=== PATIENT | female | born 1995 | race Native Hawaiian/Other Pacific Islander ===

== ENCOUNTER 2018-02-26 18:00 | Outpatient (CLI) | payer OTHER ==
[2018-02-26 18:55] LABS: Appearance,Urine Clear (Clear); Bacteria,Urine Few /hpf; Bilirubin,Urine Negative (Negative); Blood,Urine Negative (Negative); Color,Urine Light Yellow; Glucose,Urine (UA) Negative (Negative); Ketones,Urine Negative (Negative); Leukocyte Esterase,Urine Small (Negative); Mucus,Urine Rare /hpf; Nitrite,Urine Negative (Negative); Protein,Urine Negative (Negative); RBC,Urine 1 /hpf (0-5); Specific Gravity,Urine 1.007 (1.001-1.035); Squamous Epithelial Cell,Urine 2 /hpf (0-4); Urobilinogen,Urine <2.0 mg/dL (<2.0); WBC,Urine 2 /hpf (0-5)
[2018-02-26 18:59] VITALS: BP 124/77; PULSE 92; RESP 17; TEMP 98.4
--- NOTE | 2018-03-08 12:40 | P.MSEPDOC ---
Presenting Problems - Arrival Data Date of Arrival on Unit: 02/26/18 Time of Arrival on Unit: 18:00 Mode of Transport: Ambulatory - Complaint OB-Reason for Admission/Chief Complaint: Decreased Movement, Other Comment: pt reports vaginal pressure and left lower abd pain for last day that increases with movement, pt also reports decreased movement today, pt has a history of issues with emesis with , pt reports difficulty eating last two days without feeling nauseated and experiencing emesis Medical History - Information : 1 Para: 0 Term: 0 : 0 Abortions: Spontaneous or Elective: 0 Number of Living Children: 0 - Gestational Age Gestational Age by MATHEW (wks/days): 30 Weeks and 6 Days - History Comment: pt was seeing Dr Ocampo at [facility], moved here to this area 2 months ago and has not made it back to see him since Review of Systems - Review of Systems Constitutional: No problems Breast: No problems ENT: No problems Cardiovascular: No problems Respiratory: No problems Gastrointestinal: No problems Genitourinary: No problems Musculoskeletal: No problems Neurological: No problems Skin: No problems Vital Signs - Temperature Temperature: 98.4 F Temperature Source: Oral - Pulse Right Brachial Pulse Rate: 92 Pulse Assessment Method: Automatic Cuff - Respirations Respiratory Rate: 17 Oxygen Delivery Method: Room Air O2 Sat by Pulse Oximetry: 97 - Blood Pressure Right Arm Blood Pressure: 124/77 Blood Pressure Mean: 92 Blood Pressure Source: Automatic Cuff Medical Screen Scoring (Pre) - Cervical Exam Dilation: 0 cm = 0 Effacement: Exam Deferred Membranes: Intact - Uterine Contractions Frequency: N/A Duration: N/A Intensity: N/A - Maternal Vital Signs Maternal Temperature: N/A Maternal Blood Pressure: N/A Signs of Preeclampsia: N/A Maternal Respirations: N/A - Pain Assessment Pain Location and Character: Pelvic Pain Scale Used: Numeric (1 - 10) Pain Intensity: 5 Pain Management Goal: 3 Pain Description: *Acute, Sharp Pain Radiation Location: none Pain Frequency: Intermittent Pain Duration: 1 Pain Duration Units: Days Pain Behavior: None Exhibited Pain Aggravating Factors: Activity - Maternal Trauma Maternal Trauma: N/A - Assessment Baseline FHR: 145 Heart Rate - NICHD Category: Category I (Normal) = 0 NST: Reactive Position: N/A Station: N/A - Total Score Total Score (Pre): 0 - Level of Risk Level of Risk: Low (0-5) Physician Notification (Pre) - Physician Notified Physician Notified Date: 02/26/18 Physician Notified Time: 18:30 Physician/Practitioner Notifed:: Dr Benitez Spoke With: Dr Emmanuel Meraz Order Received: Yes (send ua) Medical Screen Scoring (Post) - Maternal Trauma Maternal Trauma: N/A - Assessment Heart Rate: 135 Heart Rate - NICHD Category: Category I (Normal) = 0 NST: Reactive Position: N/A - Total Score Total Score (Post): 0 - Post Treatment Level of Risk Post Treatment Level of Risk: N/A Physician Notification (Post) - Physician Notified Physician Notified Date: 02/26/18 Physician Notified Time: 19:30 Physician/Practitioner Notified:: Dr. Benitez Spoke With: Dr. Emmanuel Meraz Order Received: Yes - Notification Comment Comment: d/c home Disposition - Disposition OB Disposition: Discharge to home Discharge Date: 02/26/18 Discharge Time: 19:30 I agree with the RN Medical Screening Exam: Yes Risk & Benefit of care provided described in d/c instruction: Yes Diagnosis: DECREASED MOVEMENTS, THIRD TRIMESTER, UNSP
== END 2018-02-26 19:30 | disposition home or self-care (01) ==
LOC: FBPOP 18:00
PROVIDERS: ATTEND Obstetrics & Gynecology
DX: O36.8130 Decreased fetal movements, third trimester, not applicable or unspecified (principal); Z3A.30 30 weeks gestation of pregnancy
CPT/HCPCS: 59025; 81001; G0463; 99213

== ENCOUNTER 2018-04-03 23:34 | Outpatient (CLI) | payer OTHER ==
[2018-04-04 01:01] LABS: Appearance,Urine Clear (Clear); Bacteria,Urine Rare /hpf; Bilirubin,Urine Negative (Negative); Blood,Urine Negative (Negative); Color,Urine Yellow; Glucose,Urine (UA) Negative (Negative); Ketones,Urine Negative (Negative); Leukocyte Esterase,Urine Small (Negative); Mucus,Urine Rare /hpf; Nitrite,Urine Negative (Negative); PH, Urine 6.5 (5.0-8.0); Protein,Urine Negative (Negative); RBC,Urine <1 /hpf (0-5); Specific Gravity,Urine 1.011 (1.001-1.035); Squamous Epithelial Cell,Urine 1 /hpf (0-4); Urobilinogen,Urine <2.0 mg/dL (<2.0); WBC,Urine 2 /hpf (0-5)
[2018-04-04 01:22] VITALS: BP 131/81; PULSE 76; RESP 16; TEMP 99.7
--- NOTE | 2018-04-04 07:43 | P.MSEPDOC ---
Presenting Problems - Arrival Data Date of Arrival on Unit: 04/03/18 Time of Arrival on Unit: 23:30 Mode of Transport: Wheelchair - Complaint OB-Reason for Admission/Chief Complaint: Rule Out SROM Comment: pt had a small gush of fluid after 10pm Medical History - Information : 1 Para: 0 Term: 0 : 0 Abortions: Spontaneous or Elective: 0 Number of Living Children: 0 - Gestational Age Gestational Age by MATHEW (wks/days): 36 Weeks and 1 Days Review of Systems - Review of Systems Constitutional: No problems Breast: No problems ENT: No problems Cardiovascular: No problems Respiratory: No problems Gastrointestinal: Diarrhea Genitourinary: Increased frequency Musculoskeletal: No problems Neurological: No problems Skin: No problems Comment: pt has been vomiting the entire Vital Signs - Temperature Temperature: 99.7 F Temperature Source: Oral - Pulse Right Sitting Brachial Pulse Rate: 76 Pulse Assessment Method: Automatic Cuff - Respirations Respiratory Rate: 16 Oxygen Delivery Method: Room Air - Blood Pressure Right Arm Sitting Blood Pressure: 131/81 Blood Pressure Mean: 97 Blood Pressure Source: Automatic Cuff Medical Screen Scoring (Pre) - Cervical Exam Dilation: 0 cm = 0 Membranes: Intact - Uterine Contractions Frequency: N/A Duration: N/A Intensity: N/A - Maternal Vital Signs Maternal Temperature: N/A Maternal Blood Pressure: N/A Signs of Preeclampsia: N/A Maternal Respirations: N/A - Pain Assessment Pain Location and Character: Left, Groin Pain Scale Used: Numeric (1 - 10) Pain Intensity: 8 Pain Management Goal: 2 Pain Description: Aching Pain Frequency: Occasional Pain Behavior: None Exhibited Pain Aggravating Factors: Walking - Maternal Trauma Maternal Trauma: N/A - Assessment Baseline FHR: 135 Heart Rate - NICHD Category: Category I (Normal) = 0 NST: Reactive - Total Score Total Score (Pre): 0 - Level of Risk Level of Risk: Low (0-5) Physician Notification (Pre) - Physician Notified Physician Notified Date: 04/04/18 Physician Notified Time: 00:07 Spoke With: Dr Mickey Meraz Order Received: Yes - Notification Comment Comment: Discharge Home Disposition - Disposition OB Disposition: Discharge to home, Written follow up instructions reviewed Discharge Date: 04/04/18 Discharge Time: 01:15 I agree with the RN Medical Screening Exam: Yes Risk & Benefit of care provided described in d/c instruction: Yes Diagnosis: FALSE LABOR BEFORE 37 COMPLETED WEEKS OF GEST, THIRD TRI
== END 2018-04-04 01:15 | disposition home or self-care (01) ==
LOC: FBPOP 23:34
PROVIDERS: ATTEND Obstetrics & Gynecology
DX: O47.03 False labor before 37 completed weeks of gestation, third trimester (principal); Z3A.36 36 weeks gestation of pregnancy
CPT/HCPCS: 59025; 84112; 81001; G0463; 99213

== ENCOUNTER 2020-11-18 14:44 | Emergency (ER) | payer OTHER ==
[2020-11-18 15:49] VITALS: BP 119/79; PULSE 89; RESP 18; TEMP 97.8
--- NOTE | 2020-11-18 17:04 | XR ---
EXAMINATION TYPE: XR chest 2V DATE OF EXAM: 11/18/2020 COMPARISON: NONE HISTORY: Cough TECHNIQUE: 2 views FINDINGS: Heart and mediastinum are normal. Lungs are clear. Diaphragm is normal. Bony thorax appears normal. IMPRESSION: Normal chest
--- NOTE | 2020-11-18 18:12 | ED ---
URI HPI - General Chief Complaint: Upper Respiratory Infection Stated Complaint: SOB,Cough,Chest pain Time Seen by Provider: 11/18/20 17:44 Source: patient, RN notes reviewed Mode of arrival: ambulatory Limitations: no limitations - History of Present Illness Initial Comments: Patient is a 25-year-old female that presents to emergency department russ cho of upper respiratory tract infection symptoms. She notes that she's had a cough that has been dry sinus congestion. She'll that she wanted to come emergency room just to get tested for Covid. She was in no apparent distress or pain while sitting up in bed during the exam interview. She noted that her coughing fits negative feel like her chest is getting kicked by a horse understands that coughing is a violent act. She denied any chest pain shortness of breath headache nausea vomiting diarrhea constipation fever fatigue chills. - Related Data Home Medications Medication Instructions Recorded Confirmed No Known Home Medications 02/26/18 04/03/18 Allergies Allergy/AdvReac Type Severity Reaction Status Date / Time amoxicillin Allergy Unknown Verified 11/18/20 15:46 Childhood Review of Systems ROS Statement: Those systems with pertinent positive or pertinent negative responses have been documented in the HPI. ROS Other: All systems not noted in ROS Statement are negative. Past Medical History Past Medical History: No Reported History History of Any Multi-Drug Resistant Organisms: None Reported Past Surgical History: No Surgical Hx Reported Past Psychological History: No Psychological Hx Reported Smoking Status: Never smoker Past Alcohol Use History: None Reported Past Drug Use History: Marijuana General Exam Limitations: no limitations General appearance: alert, in no apparent distress, obese Head exam: Present: atraumatic, normocephalic, normal inspection Eye exam: Present: normal appearance, PERRL, EOMI. Absent: scleral icterus, conjunctival injection, periorbital swelling Neck exam: Present: normal inspection. Absent: tenderness, meningismus, lymphadenopathy Respiratory exam: Present: normal lung sounds bilaterally. Absent: respiratory distress, wheezes, rales, rhonchi, stridor Cardiovascular Exam: Present: regular rate, normal rhythm, normal heart sounds. Absent: systolic murmur, diastolic murmur, rubs, gallop, clicks GI/Abdominal exam: Present: soft, normal bowel sounds. Absent: distended, tenderness, guarding, rebound, rigid Extremities exam: Present: normal inspection, full ROM, normal capillary refill. Absent: tenderness, pedal edema, joint swelling, calf tenderness Neurological exam: Present: alert, oriented X3, CN II-XII intact Psychiatric exam: Present: normal affect, normal mood Skin exam: Present: warm, dry, intact, normal color. Absent: rash Course Vital Signs 11/18/20 15:47 Temperature 97.8 F Pulse Rate 89 Respiratory 18 Rate Blood Pressure 119/79 O2 Sat by Pulse 98 Oximetry Medical Decision Making - Medical Decision Making 25 female complaining of upper respiratory tract infection symptoms for the past several days. Covid test, chest x-ray ordered. Covid test negative. Chest x-ray negative for any acute cardiopulmonary process. Case discussed with Dr. Woodward, patient to discharge home with symptomatic management. - Lab Data Lab Results 11/18/20 Range/Units 15:50 Coronavirus (PCR) Not Detected (Not Detectd) Disposition Clinical Impression: Upper respiratory tract infection Disposition: HOME SELF-CARE Condition: Stable Instructions (If sedation given, give patient instructions): Upper Respiratory Infection (ED) Additional Instructions: Please return to the Emergency Department if symptoms worsen or any other concerns. Follow-up with primary care in 3-5 days. Can take [id number] anti-inflammatories for fever and pain control. Can use [id number] cough medicine and nasal sprays to help with congestion and cough. Is patient prescribed a controlled substance at d/c from ED?: No Referrals: Yanet Dixon MD [Primary Care Provider] - 1-2 days Time of Disposition: 18:12
== END 2020-11-18 18:18 | disposition home or self-care (01) ==
LOC: EC 14:44
DX: J06.9 Acute upper respiratory infection, unspecified (principal); Z20.822 Contact with and (suspected) exposure to COVID-19; F12.90 Cannabis use, unspecified, uncomplicated
CPT/HCPCS: 71046; 87635; 99285

== ENCOUNTER 2021-11-08 18:29 | Outpatient (CLI) | payer OTHER ==
[2021-11-08 19:32] VITALS: BP 131/63; PULSE 97; RESP 18; TEMP 97
--- NOTE | 2021-11-08 20:02 | P.MSEPDOC ---
Presenting Problems - Arrival Data Date of Arrival on Unit: 11/08/21 Time of Arrival on Unit: 18:29 Mode of Transport: Ambulatory - Complaint OB-Reason for Admission/Chief Complaint: Vaginal Bleeding Comment: pt arrives with reports of vaginal bleeding with bright red blood in toilet and blood clots when she wiped 30 minutes ago. Medical History - Information : 2 Para: 1 Term: 0 : 1 Abortions: Spontaneous or Elective: 0 Number of Living Children: 1 - Gestational Age Gestational Age by MATHEW (wks/days): 31 Weeks and 3 Days - History Complications: Prior , Other Comment: pt states she takes progesterone for short cervix. pt states 2 weeks ago she was dilated to fingertip and 50%. Review of Systems - Review of Systems Constitutional: No problems Breast: No problems ENT: No problems Cardiovascular: No problems Respiratory: No problems Gastrointestinal: No problems Genitourinary: No problems Musculoskeletal: No problems Neurological: No problems Skin: No problems Vital Signs - Temperature Temperature: 97.0 F Temperature Source: Temporal Artery Scan - Pulse Right Pulse Oximetery Pulse Rate: 97 Pulse Assessment Method: Pulse Oximetry - Respirations Respiratory Rate: 18 Oxygen Delivery Method: Room Air O2 Sat by Pulse Oximetry: 96 - Blood Pressure Right Arm Blood Pressure: 131/63 Blood Pressure Mean: 85 Blood Pressure Source: Automatic Cuff Medical Screen Scoring - Cervical Exam Dilation (cm): 1 Effacement (%): 50 Station: -3 Membranes: Intact - Uterine Contractions Frequency From (mins): 0 Frequency To (mins): 0 - Assessment - Baby A Baseline FHR: 140 Heart Rate - NICHD Category: Category I (Normal) NST: Reactive Physician Notification - Physician Notified Physician Notified Date: 11/08/21 Physician Notified Time: 18:58 Physician: Germán Armenta New Order Received: Yes - Notification Comment Comment: given report on pt of [facility] [place], , hx 36 week vaginal delivery, arriving with complaints of vaginal bleeding, blood in toilet and some small clots when wiping prior to arrival. reported on hx of short cervix, pt on vaginal progesterone. reported FHR category 1, reactive NST, no contractions per monitor, cervical exam completed after Drs orders, same cervical exam as when she was in office 2 weeks ago, only old blood on glove after checking patient, no glove noted on pts trini pad. Order to discharge patient with instructions to follow up tonight by calling her lan specialist for instructions for when to be seen in office for follow up. Maternal Triage Index - Maternal Triage Index Presenting for scheduled procedure w/no complaint: Yes - Stat/Priority 1 Stat Priority 1: Yes - Urgent/Priority 2 Urgent Priority 2: Yes Provider Notified: Germán Armenta Provider Notified Time: 18:58 Criteria Met for Priority 2: Pt arrives with complaints of vaginal bleeding 31 3/7 weeks gestation. Disposition - Disposition OB Disposition: Discharge to home Discharge Date: 11/08/21 Discharge Time: 19:15 I agree with the RN Medical Screening Exam: Yes Case reviewed; plan agreed upon as documented in EMR&OBIX.: Yes Diagnosis: FALSE LABOR BEFORE 37 COMPLETED WEEKS OF GEST, THIRD TRI (Pt presents with complaint of episode vaginal spotting. Has with another local provider but came here for unknown reasons. Apparently complicated by ?history short cervix and is on progesterone per that provider. Exam per RN shows only some small amount old blood. No active bleeding. Cervix unchanged from her provider 2 weeks ago. FHTs are reassuring without decelerations. Patient was advised to call her provider this evening for further instructions since they are most familiar with her clinical condition. Also advised in the future it would be best to present at the facility where her provider practices to provide optimal care. There is no evidence of maternal / compromise and patient stable to f/u with her provider this evening. )
== END 2021-11-08 19:15 | disposition home or self-care (01) ==
LOC: FBPOP 18:29
PROVIDERS: ATTEND Obstetrics & Gynecology
DX: O47.03 False labor before 37 completed weeks of gestation, third trimester (principal); Z3A.31 31 weeks gestation of pregnancy
CPT/HCPCS: 59025; G0463; 99213

== ENCOUNTER 2023-11-24 14:18 | Emergency (ER) | payer OTHER ==
[2023-11-24 14:52] VITALS: TEMP 99.1
--- NOTE | 2023-11-24 15:40 | ED ---
General Adult HPI - General Chief complaint: Abdominal Pain Stated complaint: vomiting and abd pain Time Seen by Provider: 11/24/23 15:06 Source: patient Mode of arrival: ambulatory Limitations: no limitations - History of Present Illness Initial comments: Dictation was produced using [email or web address] dictation software. please excuse any grammatical, word or spelling errors. Chief Complaint: 28-year-old female presents with right-sided abdominal pain and flank pain History of Present Illness: Patient 28-year-old female presents emergency department with right-sided abdominal pain. States that the pain radiates to her right back. Denies any history of kidney stones. She had her last menstrual period 2 weeks ago. She does complain of associated nausea vomiting. No diarrhea. She has been having hot flashes. Patient took a test which she states was negative. She complains of a fever. Denies any history of abdominal surgery. The ROS documented in this emergency department record has been reviewed and confirmed by me. Those systems with pertinent positive or negative responses have been documented in the HPI. All other systems are other negative and/or noncontributory. - Related Data Home Medications Medication Instructions Recorded Confirmed Vit No.180/Iron/Folic 1 tab PO DAILY 11/08/21 11/08/21 [ Plus Tablet] Progesterone, Micronized 1 capsule VAGINAL DAILY 11/08/21 11/08/21 [Progesterone] Allergies Allergy/AdvReac Type Severity Reaction Status Date / Time amoxicillin Allergy Unknown Verified 11/24/23 14:43 Childhood Review of Systems ROS Statement: Those systems with pertinent positive or pertinent negative responses have been documented in the HPI. ROS Other: All systems not noted in ROS Statement are negative. Past Medical History Past Medical History: No Reported History History of Any Multi-Drug Resistant Organisms: None Reported Past Surgical History: No Surgical Hx Reported Past Psychological History: No Psychological Hx Reported, Anxiety, Depression Smoking Status: Never smoker Past Alcohol Use History: Occasional Past Drug Use History: Marijuana General Exam - General Exam Comments Initial Comments: PHYSICAL EXAM: General Impression: Alert and oriented x3, not in acute distress HEENT: Normocephalic atraumatic, extra-ocular movements intact, pupils equal and reactive to light bilaterally, mucous membranes moist. Cardiovascular: Heart regular rate and rhythm Chest: Able to complete full sentences, no retractions, no tachypnea Abdomen: abdomen soft, n mild tenderness to the right upper quadrant, positive Ruby sign, non-distended, no organomegaly Musculoskeletal: Pulses present and equal in all extremities, no peripheral edema Motor: no focal deficits noted Neurological: CN II-XII grossly intact, no focal motor or sensory deficits noted Skin: Intact with no visualized rashes Psych: Normal affect and mood Limitations: no limitations Course Vital Signs 11/24/23 14:39 Temperature 99.1 F Pulse Rate 114 H Respiratory 20 Rate Blood Pressure 134/86 O2 Sat by Pulse 99 Oximetry Medical Decision Making - Medical Decision Making Was pt. sent in by a medical professional or institution (, PA, [place] INTERN, urgent care, hospital, or snf...) When possible be specific @ -No Did you speak to anyone other than the patient for history (EMS, parent, family, police, friend...)? What history was obtained from this source @ -No Did you review nursing and triage notes (agree or disagree)? Why? @ -I reviewed and agree with nursing and triage notes Were old charts reviewed (outside hosp., previous admission, EMS record, old EKG, old radiological studies, urgent care reports/EKG's, snf records)? Report findings @ -No old charts were reviewed Differential Diagnosis (chest pain, altered mental status, abdominal pain women, abdominal pain men, vaginal bleeding, musculoskeletal, weakness, fever, dyspnea, syncope, headache, dizziness, GI bleed, back pain, seizure, CVA, palpatations, mental health)? @ -Differential Abdominal Pain Women: Appendicitis, Cholecystitis, diverticulosis, ischemic bowel, pancreatitis, hepatitis, UTI, gastroenteritis, AAA, incarcerated hernia, bowel obstruction, constipation, inflammatory bowel, hepatitis, peptic ulcer disease, splenic infarction, perforated viscus, vulvitis, ovarian torsion, PID, kidney stone, placenta abruption, this is not meant to be an all-inclusive list EKG interpreted by me (3pts min.). @ -None done X-rays interpreted by me (1pt min.). @ -None done CT interpreted by me (1pt min.). @ -None done U/S interpreted by me (1pt. min.). @ -Ultrasound of the abdomen shows hepatic steatosis. No cholelithiasis or acute cholecystitis What testing was considered but not performed or refused? (CT, X-rays, U/S, labs)? Why? @ -None What meds were considered but not given or refused? Why? @ -None Did you discuss the management of the patient with other professionals (professionals i.e. , PA, PR INTERN, lab, RT, psych nurse, psychosocial rehabilitation counselor, thermostat repairer, teacher, radio officer, case assistant)? Give summary @ -No Was smoking cessation discussed for >3mins.? @ -No Was critical care preformed (if so, how long)? @ -No Were there social determinants of health that impacted care today? How? (Homelessness, low income, unemployed, alcoholism, drug addiction, transportation, low edu. Level, literacy, decrease access to med. care, [facility], rehab)? @ -No Was there de-escalation of care discussed even if they declined (Discuss DNR or withdrawal of care, Hospice)? DNR status @ -No What co-morbidities impacted this encounter? (DM, HTN, Smoking, COPD, CAD, Cancer, CVA, ARF, Chemo, Hep., AIDS, mental health diagnosis, sleep apnea, m orbid obesity)? @ -None Was patient admitted / discharged? Hospital course, mention meds given and route, prescriptions, significant lab abnormalities, going to OR and other pertinent info. @ -28-year-old female presents emergency department for right upper quadrant abdominal pain radiation to the back. Vital signs upon arrival are within acceptable limits. Laboratory evaluation obtained. Mild leukocytosis of 13.8. Hemoglobin is 16.1. Metabolic panel is within acceptable limits. No acidosis. Urinalysis negative for UTI. Urine hCG is negative. Ultrasound negative for any acute processes. At this point is unclear what is causing patient's symptoms likely could be related to fatty liver. Patient otherwise in stable medical edition she will be discharged. Patient starter pack for analgesics. Advised follow-up with primary care doctor. Undiagnosed new problem with uncertain prognosis? @ -No Drug Therapy requiring intensive monitoring for toxicity (Heparin, Nitro, Insulin, Cardizem)? @ -No Were any procedures done? @ -No Diagnosis/symptom? Acute, or Chronic, or Acute on Chronic? Uncomplicated (without systemic symptoms) or Complicated (systemic symptoms)? @ -Abdominal pain, no high risk features Side effects of treatment? @ -No Exacerbation, Progression, or Severe Exacerbation? @ -No Poses a threat to life or bodily function? How? (Chest pain, [place], [place], pneumonia, PE, COPD, DKA, ARF, appy, cholecystitis, CVA, Diverticulitis, Homicidal, Suicidal, threat to staff... and all critical care pts) @ -No - Lab Data Result diagrams: 11/24/23 15:47 11/24/23 15:47 Lab Results 11/24/23 11/24/23 11/24/23 Range/Units 15:47 15:47 16:08 WBC 13.8 H (3.8-10.6) k/uL RBC 5.58 H (3.80-5.40) m/uL Hgb 16.1 H (11.4-16.0) gm/dL Hct 49.8 H (34.0-46.0) % MCV 89.2 (80.0-100.0) fL MCH 28.8 (25.0-35.0) pg MCHC 32.3 (31.0-37.0) g/dL RDW 13.4 (11.5-15.5) % Plt Count 305 (150-450) k/uL MPV 8.2 Neutrophils % 86 % Lymphocytes % 8 % Monocytes % 4 % Eosinophils % 1 % Basophils % 0 % Neutrophils # 11.8 H (1.3-7.7) k/uL Lymphocytes # 1.2 (1.0-4.8) k/uL Monocytes # 0.6 (0-1.0) k/uL Eosinophils # 0.1 (0-0.7) k/uL Basophils # 0.0 (0-0.2) k/uL Sodium 139 (137-145) mmol/L Potassium 4.9 (3.5-5.1) mmol/L Chloride 106 (98-107) mmol/L Carbon Dioxide 21 L (22-30) mmol/L Anion Gap 12 mmol/L BUN 12 (7-17) mg/dL Creatinine 0.66 (0.52-1.04) mg/dL Est GFR (CKD-EPI)AfAm >90 (>60 ml/min/1.73 sqM) Est GFR (CKD-EPI)NonAf >90 (>60 ml/min/1.73 sqM) Glucose 84 (74-99) mg/dL Calcium 9.6 (8.4-10.2) mg/dL Total Bilirubin 1.1 (0.2-1.3) mg/dL AST 59 H (14-36) U/L ALT 82 H (4-34) U/L Alkaline Phosphatase 86 (38-126) U/L Total Protein 9.1 H (6.3-8.2) g/dL Albumin 5.2 H (3.5-5.0) g/dL Urine Color Urine Appearance (Clear) Urine pH (5.0-8.0) Ur Specific [place] (1.001-1.035) Urine Protein (Negative) Urine Glucose (UA) (Negative) Urine Ketones (Negative) Urine Blood (Negative) Urine Nitrite (Negative) Urine Bilirubin (Negative) Urine Urobilinogen (<2.0) mg/dL Ur Leukocyte Esterase (Negative) Urine RBC (0-5) /hpf Urine WBC (0-5) /hpf Ur Squamous Epith Cells (0-4) /hpf Urine Mucus (None) /hpf Urine HCG, Qual Not Detected (Not Detectd) 11/24/23 Range/Units 16:08 WBC (3.8-10.6) k/uL RBC (3.80-5.40) m/uL Hgb (11.4-16.0) gm/dL Hct (34.0-46.0) % MCV (80.0-100.0) fL MCH (25.0-35.0) pg MCHC (31.0-37.0) g/dL RDW (11.5-15.5) % Plt Count (150-450) k/uL MPV Neutrophils % % Lymphocytes % % Monocytes % % Eosinophils % % Basophils % % Neutrophils # (1.3-7.7) k/uL Lymphocytes # (1.0-4.8) k/uL Monocytes # (0-1.0) k/uL Eosinophils # (0-0.7) k/uL Basophils # (0-0.2) k/uL Sodium (137-145) mmol/L Potassium (3.5-5.1) mmol/L Chloride (98-107) mmol/L Carbon Dioxide (22-30) mmol/L Anion Gap mmol/L BUN (7-17) mg/dL Creatinine (0.52-1.04) mg/dL Est GFR (CKD-EPI)AfAm (>60 ml/min/1.73 sqM) Est GFR (CKD-EPI)NonAf (>60 ml/min/1.73 sqM) Glucose (74-99) mg/dL Calcium (8.4-10.2) mg/dL Total Bilirubin (0.2-1.3) mg/dL AST (14-36) U/L ALT (4-34) U/L Alkaline Phosphatase (38-126) U/L Total Protein (6.3-8.2) g/dL Albumin (3.5-5.0) g/dL Urine Color Light Yellow Urine Appearance Clear (Clear) Urine pH 8.0 (5.0-8.0) Ur Specific [place] 1.021 (1.001-1.035) Urine Protein Trace H (Negative) Urine Glucose (UA) Negative (Negative) Urine Ketones Negative (Negative) Urine Blood Trace H (Negative) Urine Nitrite Negative (Negative) Urine Bilirubin Negative (Negative) Urine Urobilinogen <2.0 (<2.0) mg/dL Ur Leukocyte Esterase Negative (Negative) Urine RBC 6 H (0-5) /hpf Urine WBC 1 (0-5) /hpf Ur Squamous Epith Cells 2 (0-4) /hpf Urine Mucus Rare H (None) /hpf Urine HCG, Qual (Not Detectd) Disposition Clinical Impression: Abdominal pain Disposition: HOME SELF-CARE Condition: Fair Instructions (If sedation given, give patient instructions): Non-Alcoholic Fatty Liver Disease (ED) Is patient prescribed a controlled substance at d/c from ED?: No Referrals: Yanet Dixon MD [Primary Care Provider] - 1-2 days Time of Disposition: 17:26
[2023-11-24] MEDS: ONDANSETRON 4 MG/2 ML VIAL IVP STA (15:51)
[2023-11-24] MEDS: SODIUM CHLORIDE 0.9% 1,000 ML IV STA (15:51)
[2023-11-24] MEDS: LORazepam 2 MG/ML INJ IV STA (15:52)
[2023-11-24 16:16] LABS: Basophils % (A) 0 %; Eosinophils # (A) 0.1 k/uL (0-0.7); Eosinophils % (A) 1 %; HCT 49.8 % (34.0-46.0); HGB 16.1 gm/dL (11.4-16.0); Lymphocytes # (A) 1.2 k/uL (1.0-4.8); Lymphocytes % (A) 8 %; MCH 28.8 pg (25.0-35.0); MCHC 32.3 g/dL (31.0-37.0); MCV 89.2 fL (80.0-100.0); Mean Platelet Volume 8.2; Monocytes # (A) 0.6 k/uL (0-1.0); Monocytes % (A) 4 %; Neutrophils # (A) 11.8 k/uL (1.3-7.7); Neutrophils % (A) 86 %; Platelet Count 305 k/uL (150-450); RBC 5.58 m/uL (3.80-5.40); RDW 13.4 % (11.5-15.5); WBC 13.8 k/uL (3.8-10.6)
[2023-11-24 16:28] LABS: Appearance,Urine Clear (Clear); Bilirubin,Urine Negative (Negative); Blood,Urine Trace (Negative); Color,Urine Light Yellow; Glucose,Urine (UA) Negative (Negative); Ketones,Urine Negative (Negative); Leukocyte Esterase,Urine Negative (Negative); Mucus,Urine Rare /hpf; Nitrite,Urine Negative (Negative); Protein,Urine Trace (Negative); RBC,Urine 6 /hpf (0-5); Specific Gravity,Urine 1.021 (1.001-1.035); Squamous Epithelial Cell,Urine 2 /hpf (0-4); Urobilinogen,Urine <2.0 mg/dL (<2.0); WBC,Urine 1 /hpf (0-5)
[2023-11-24 16:29] LABS: ALT 82 U/L (4-34); African American GFR (CKD) >90 (>60 ml/min/1.73 sqM); Albumin 5.2 g/dL (3.5-5.0); Anion Gap 12 mmol/L; Blood Urea Nitrogen 12 mg/dL (7-17); Calcium 9.6 mg/dL (8.4-10.2); Carbon Dioxide 21 mmol/L (22-30); Chloride 106 mmol/L (98-107); Glucose 84 mg/dL (74-99); Non-African American GFR(CKD) >90 (>60 ml/min/1.73 sqM); Sodium 139 mmol/L (137-145)
[2023-11-24 16:31] LABS: AST 59 U/L (14-36); Alkaline Phosphatase 86 U/L (38-126); Potassium 4.9 mmol/L (3.5-5.1); Total Bilirubin 1.1 mg/dL (0.2-1.3); Total Protein 9.1 g/dL (6.3-8.2)
--- NOTE | 2023-11-24 16:45 | US ---
EXAMINATION TYPE: US abdomen limited DATE OF EXAM: 11/24/2023 COMPARISON: NONE CLINICAL INDICATION: Female, 28 years old with history of epigastric pain; pain and n/v x 1 day TECHNIQUE: Multiple sonographic images of the right upper quadrant are obtained. 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 No evidence for acute process. 2. Hepatic steatosis.
[2023-11-24] MEDS: ACET/COD 300 MG/30 MG STARTER PACK 6 TAB BTL PO STA (17:41)
[2023-11-24 18:06] VITALS: BP 106/72; PULSE 96; RESP 14
== END 2023-11-24 17:44 | disposition home or self-care (01) ==
LOC: EC 14:18
DX: R10.9 Unspecified abdominal pain (principal); F12.90 Cannabis use, unspecified, uncomplicated; Z88.0 Allergy status to penicillin
CPT/HCPCS: 36415; 80053; 85025; 81001; 81025; 76705; 99284; 96374; 96375; 96361 ×2; J2060; J2405

== ENCOUNTER → 2023-11-29 | Outpatient (CLI) | payer OTHER ==
--- NOTE | 2023-11-29 14:35 | CT ---
EXAMINATION TYPE: CT abdomen pelvis w con CT DLP: 1912.4 mGycm, Automated exposure control for dose reduction was used. DATE OF EXAM: 11/29/2023 1:40 PM COMPARISON: CT abdomen pelvis most recent from CLINICAL INDICATION:Female, 28 years old with history of R10.11 RUQ pain; upper abd pain TECHNIQUE: Axial CT abdomen pelvis w con;Sagittal and coronal reformats were created on a separate w orkstation. Contrast used:100 mL of Isovue 300 with IV Contrast, (none if empty) Oral contrast used: with Oral Contrast (none if empty) FINDINGS: LOWER CHEST: Unremarkable ABDOMEN LIVER: Unremarkable GALLBLADDER AND BILE DUCTS: Unremarkable. PANCREAS: Unremarkable. SPLEEN: Unremarkable. ADRENAL GLANDS: Unremarkable. KIDNEYS AND URETERS: No evidence of hydronephrosis or renal calculus. The ureters are unremarkable. PELVIS BLADDER: Unremarkable REPRODUCTIVE: Unremarkable. ABDOMEN & PELVIS STOMACH AND BOWEL: Small bowel is normal caliber and appearance. No evidence of bowel obstruction. PERITONEUM/RETROPERITONEUM: No evidence of pneumoperitoneum or free fluid. VASCULATURE: No evidence of aortic aneurysm. MUSCULOSKELETAL: No acute osseous abnormalities LYMPH NODES: No gross evidence for lymphadenopathy. SOFT TISSUE/ABDOMINAL WALL: Unremarkable IMPRESSION: 1. No definite CT evidence of an acute process
== END | disposition home or self-care (01) ==
LOC: RADCTMAIN 11:48
PROVIDERS: ATTEND Family Medicine
DX: R10.11 Right upper quadrant pain (principal)
CPT/HCPCS: 74177; Q9967